=== PATIENT | female | born 1955 | race Hispanic/Latino ===

== ENCOUNTER 2020-04-28 05:53 | Emergency (ER) | payer OTHER ==
[2020-04-28] MEDS ORDERED: FAMOTIDINE 20 MG/2 ML VIAL IV ONE (06:52)
[2020-04-28] MEDS ORDERED: METRONIDAZOLE 500mg IVPB 500 MG/100 ML BAG IV ONE (06:52)
[2020-04-28] MEDS ORDERED: NA CHLORIDE 0.9% 1,000 ML ONE ×2 (06:52→07:31)
[2020-04-28 07:12] LABS: Absolute Lymphocytes (CBC) 0.7 K/uL (0.7-4.9); Basophils % 0.4 % (0-1.3); Hematocrit 43.8 % (36.0-45.0); Lymphocytes % 5.3 % (15.3-44.8); MPV 9.1 fL (7.6-11.3); RBC Red Blood Cell Count 4.44 M/uL (3.86-4.86)
[2020-04-28 07:16] LABS: Protime INR 1.21
--- NOTE | 2020-04-28 07:21 | EDPHYS ---
Physician Documentation [facility] Name: Radha Armando Age: 65 yrs Sex: Female : 1955 Arrival Date: 04/28/2020 Time: 06:01 Bed 7 Private MD: Torres Juarez ED Physician Federico De Anda HPI: 04/28 06:31 This 65 yrs old Female presents to ER via Ambulatory with complaints of marilin Nausea/Vomiting, Abdominal Pain. 06:31 The patient presents to the emergency department with nausea, vomiting. marilin Historical: - Allergies: 06:03 Codeine; sg - PMHx: 06:03 Hypertension; sg - PSHx: 06:03 Cholecystectomy; TUBAL ; sg - Immunization history:: Adult Immunizations up to date. - Social history:: Smoking status: Patient denies any tobacco usage or history of. ROS: 06:33 Constitutional: Negative for fever, chills, and weight loss, Eyes: Negative for injury, marilin pain, redness, and discharge, ENT: Negative for injury, pain, and discharge, Neck: Negative for injury, pain, and swelling, Cardiovascular: Negative for chest pain, palpitations, and edema, Respiratory: Negative for shortness of breath, cough, wheezing, and pleuritic chest pain, Back: Negative for injury and pain, : Negative for injury, bleeding, discharge, and swelling, MS/Extremity: Negative for injury and deformity, Neuro: Negative for headache, weakness, numbness, tingling, and seizure, Psych: Negative for depression, anxiety, suicide ideation, homicidal ideation, and hallucinations, Allergy/Immunology: Negative for hives, rash, and allergies, Endocrine: Negative for neck swelling, polydipsia, polyuria, polyphagia, and marked weight changes. 06:33 Abdomen/GI: Positive for abdominal pain, nausea and vomiting, abdominal cramps, flatulence, of the epigastric area, posterior aspect of right lateral abdomen, anterior aspect of right lateral abdomen and right upper quadrant. 06:33 Skin: Positive for rash, of the abdomen, right arm, left arm, right leg and left leg, petechiae, diffuse. Exam: 06:33 Constitutional: This is a well developed, well nourished patient who is awake, alert, marilin and in no acute distress. Head/Face: Normocephalic, atraumatic. Eyes: Pupils equal round and reactive to light, extra-ocular motions intact. Lids and lashes normal. Conjunctiva and sclera are non-icteric and not injected. Cornea within normal limits. Periorbital areas with no swelling, redness, or edema. ENT: Nares patent. No nasal discharge, no septal abnormalities noted. Tympanic membranes are normal and external auditory canals are clear. Oropharynx with no redness, swelling, or masses, exudates, or evidence of obstruction, uvula midline. Mucous membranes moist. Neck: Trachea midline, no thyromegaly or masses palpated, and no cervical lymphadenopathy. Supple, full range of motion without nuchal rigidity, or vertebral point tenderness. No Meningismus. Chest/axilla: Normal chest wall appearance and motion. Nontender with no deformity. No lesions are appreciated. Respiratory: Lungs have equal breath sounds bilaterally, clear to auscultation and percussion. No rales, rhonchi or wheezes noted. No increased work of breathing, no retractions or nasal flaring. Back: No spinal tenderness. No costovertebral tenderness. Full range of motion. Female : Normal external genitalia. MS/ Extremity: Pulses equal, no cyanosis. Neurovascular intact. Full, normal range of motion. Neuro: Awake and alert, GCS 15, oriented to person, place, time, and situation. Cranial nerves II-XII grossly intact. Motor strength 5/5 in all extremities. Sensory grossly intact. Cerebellar exam normal. Normal gait. Psych: Awake, alert, with orientation to person, place and time. Behavior, mood, and affect are within normal limits. 06:33 Cardiovascular: Rate: normal, Rhythm: regular, Pulses: Pulses are 4+ in bilateral radial, brachial, femoral, popliteal, posterior tibial and and dorsalis pedis arteries.. Heart sounds: normal, Edema: is not appreciated, JVD: is not appreciated. 06:33 Skin: Appearance: petechiae, noted on the abdomen, pelvis, right arm, left arm, right marilin leg and left leg. 06:42 ECG was reviewed by the Attending Physician. [facility] Vital Signs: 06:03 Pulse 89; Resp 18; Temp 97.7; Pulse Ox 96% on R/A; sg 06:03 Weight 73.48 kg; Height 5 ft. 2 in. (157.48 cm); sg 06:38 BP 143 / 82; Pulse 105; Resp 19; Pulse Ox 95% on R/A; jb4 07:15 BP 147 / 73; Pulse 105; Resp 17; Pulse Ox 97% ; Pain 10/10; jl7 08:29 BP 131 / 69; Pulse 82; Resp 17; Pulse Ox 96% on R/A; tw2 10:26 BP 148 / 80; Pulse 80; Resp 17; Pulse Ox 97% ; jl7 06:03 Body Mass Index 29.63 (73.48 kg, 157.48 cm) sg MDM: 06:05 Patient medically screened. [facility] 06:36 Differential diagnosis: carcinoma, Nonspecific abd pain, gastritis, cholecystitis, marilin diverticulitis. Data reviewed: vital signs, nurses notes, lab test result(s), EKG, radiologic studies, CT scan, plain films. Data interpreted: Pulse oximetry: on room air is 96 %. Test interpretation: by ED physician or midlevel provider: ECG, plain radiologic studies. Counseling: I had a detailed discussion with the patient and/or guardian regarding: the historical points, exam findings, and any diagnostic results supporting the discharge/admit diagnosis, the presence of at least one elevated blood pressure reading (>120/80) during this emergency department visit, lab results, radiology results. 08:35 ED course: Pt with significant swelling and edema of terminal small bowel with moderate rn free fluid. Unclear etiology of petechial rash, platelets normal, could be connected. Still having pain, increased free abd fluid, and increased WBC despite abx. No GI here, will have to transfer. . 04/28 06:30 Order name: Basic Metabolic Panel; Complete Time: 07:34 [facility] 04/28 06:30 Order name: CBC with Diff [facility] 04/28 06:30 Order name: LFT's; Complete Time: 07:34 [facility] 04/28 06:30 Order name: Magnesium; Complete Time: 07:34 [facility] 04/28 06:30 Order name: NT PRO-BNP; Complete Time: 07:34 [facility] 04/28 06:30 Order name: PT-INR; Complete Time: 07:31 [facility] 04/28 06:30 Order name: Troponin (emerg Dept Use Only); Complete Time: 07:34 [facility] 04/28 06:30 Order name: Lipase; Complete Time: 07:34 [facility] 04/28 06:30 Order name: Urine Culture [facility] 04/28 06:30 Order name: Blood Culture Adult (2) [facility] 04/28 06:30 Order name: Lactate; Complete Time: 08:01 [facility] 04/28 07:16 Order name: CBC Smear Scan [facility] 04/28 08:07 Order name: CREATININE WHOLE BLOOD; Complete Time: 08:23 [facility] 04/28 09:20 Order name: Urine Dipstick--Ancillary (enter results) 04/28 06:30 Order name: XRAY Chest (1 view) [facility] 04/28 06:30 Order name: EKG; Complete Time: 06:32 [facility] 04/28 06:30 Order name: Cardiac monitoring; Complete Time: 06:39 [facility] 04/28 06:30 Order name: EKG - Nurse/Tech; Complete Time: 06:39 [facility] 04/28 06:30 Order name: IV Saline Lock; Complete Time: 07:04 [facility] 04/28 06:30 Order name: Labs collected and sent; Complete Time: 07:04 [facility] 04/28 06:30 Order name: O2 Per Protocol; Complete Time: 06:39 [facility] 04/28 06:30 Order name: CT Aorta for Dissection; Complete Time: 08:01 [facility] 04/28 06:30 Order name: O2 Sat Monitoring; Complete Time: 06:39 [facility] 04/28 06:30 Order name: Urine Dipstick-Ancillary (obtain specimen); Complete Time: 09:21 [facility] EC:42 Rate is 107 beats/min. Rhythm is regular. QRS [place] is Normal. FL interval is normal. [facility] QRS interval is normal. QT interval is normal. No Q waves. T waves are Normal. No ST changes noted. Interpreted by me. Reviewed by me. Administered Medications: 07:03 Drug: Pepcid 20 mg Route: IVP; Site: left forearm; jb4 07:30 Follow up: Response: No adverse reaction jl7 07:03 Drug: Flagyl 500 mg Volume: 100 ml; Route: IVPB; Rate: 200 ml/hr; Infused Over: 30 jb4 mins; Site: left forearm; 07:33 Follow up: Response: No adverse reaction; IV Status: Completed infusion 7 07:04 Drug: NS 0.9% 1000 ml Route: IV; Rate: 1 bolus; Site: left forearm; jb4 08:00 Follow up: Response: No adverse reaction; IV Status: Completed infusion; IV Intake: jl7 1000ml 07:20 Drug: NS 0.9% 1000 ml Route: IV; Rate: 125 ml/hr; Site: left wrist; jl7 09:23 Follow up: IV Status: Infusion continued upon transfer jl7 07:23 Drug: Zofran (Ondansetron) 4 mg Route: IVP; Site: left wrist; jl7 07:45 Follow up: Response: No adverse reaction jl7 07:25 Drug: morphine 4 mg Route: IVP; Site: left wrist; jl7 07:45 Follow up: Response: No adverse reaction; Pain is decreased jl7 09:16 Drug: Cipro 400 mg Volume: 200 ml; Route: IVPB; Infused Over: 60 mins; Site: left wrist;tw2 10:15 Follow up: Response: No adverse reaction; IV Status: Completed infusion jl7 10:25 Drug: morphine 4 mg Route: IVP; Site: left forearm; jl7 10:25 Follow up: Response: No adverse reaction jl7 Disposition: 04/28/20 08:38 Transfer ordered to [facility]. Diagnosis are Enteritis, Free abdominal fluid. - Reason for transfer: Higher level of care. - Accepting physician is Dr. Gibson. - Condition is Stable. - Problem is new. - Symptoms have worsened. Signatures: Dispatcher [employer] EDMS Daniel Best RN Matty Howell MD MD cha Nieto, Roman, MD MD rn Baxter, Heather, RN RN hb Wise, Tara, RN RN tw2 Moises Castano RN RN jb4 Simeon Darby RN RN jl7 Sandra Chaney Corrections: (The following items were deleted from the chart) 07:27 07:20 04/28/2020 07:20 Transfer ordered to [facility]. marilin Diagnosis is Abdominal tenderness; Vomiting; Crohn's disease [regional enteritis]; Acute pancreatitis; Volume depletion; Essential (primary) hypertension. Reason for transfer: Higher level of care. Accepting physician is [facility] hospitalist, gi partition assembler. Condition is Fair. Problem is new. Symptoms have improved. amrilin 08:57 08:38 04/28/2020 08:38 Transfer ordered to [facility]. eb Diagnosis is Enteritis; Free abdominal fluid. Reason for transfer: Higher level of care. Accepting physician is . Condition is Stable. Problem is new. Symptoms have worsened. rn 10:27 08:57 04/28/2020 08:38 Transfer ordered to [facility]. jl7 Diagnosis is Enteritis; Free abdominal fluid. Reason for transfer: Higher level of care. Accepting physician is Dr. Gibson. Condition is Stable. Problem is new. Symptoms have worsened. eb
--- NOTE | 2020-04-28 07:21 | ER ---
Nurse's Notes [facility] Name: Radha Armando Age: 65 yrs Sex: Female : 1955 Arrival Date: 04/28/2020 Time: 06:01 Bed 7 Private MD: Torres Juarez Diagnosis: Enteritis;Free abdominal fluid Presentation: 04/28 06:03 Acuity: JUDY 3 sg 06:03 Chief complaint: Patient states: I have had nausea and vomiting throughout the night sg with abdominal pain as well. reports having pain worsen this AM, denies fever/chills for triage. Coronavirus screen: Client denies travel out of the [place] in the last 14 days. nausea, Client presents with at least one sign or symptom that may indicate coronavirus-19. Provider contacted for isolation considerations. Ebola Screen: Patient negative for fever greater than or equal to 101.5 degrees Fahrenheit, and additional compatible Ebola Virus Disease symptoms Patient denies exposure to infectious person. Patient denies travel to an Ebola-affected area in the 21 days before illness onset. No symptoms or risks identified at this time. Initial Sepsis Screen: Does the patient meet any 2 criteria? No. Patient's initial sepsis screen is negative. Does the patient have a suspected source of infection? Yes: Acute abdominal pain. Risk Assessment: Do you want to hurt yourself or someone else? Patient reports no desire to harm self or others. Onset of symptoms was April 28, 2020. Care prior to arrival: None. Transition of care: patient was not received from another setting of care. 06:03 Method Of Arrival: Ambulatory sg 06:03 Note reports rash to BLE as well as swelling to the knee joint. sg Historical: - Allergies: 06:03 Codeine; sg - PMHx: 06:03 Hypertension; sg - PSHx: 06:03 Cholecystectomy; TUBAL ; sg - Immunization history:: Adult Immunizations up to date. - Social history:: Smoking status: Patient denies any tobacco usage or history of. Screenin:10 Abuse screen: Denies threats or abuse. Nutritional screening: No deficits noted. jb4 Tuberculosis screening: No symptoms or risk factors identified. Fall Risk None identified. Assessment: 06:10 General: Appears in no apparent distress. uncomfortable, Behavior is calm, cooperative, jb4 appropriate for age. Pain: Complains of pain in right upper quadrant Pain radiates to right mid back Pain currently is 10 out of 10 on a pain scale. Neuro: Level of Consciousness is awake, alert, obeys commands, Oriented to person, place, time, situation. Cardiovascular: Patient's skin is warm and dry. Respiratory: Airway is patent Respiratory effort is even, unlabored, Respiratory pattern is regular, symmetrical. GI: Abdomen is round non-distended, Reports upper abdominal pain. : No signs and/or symptoms were reported regarding the genitourinary system. EENT: No signs and/or symptoms were reported regarding the EENT system. Derm: Skin is intact, Skin is pink, warm \T\ dry. Musculoskeletal: Circulation, motion, and sensation intact. Range of motion: intact in all extremities. 06:54 Reassessment: Patient appears in no apparent distress at this time. Patient and/or jb4 family updated on plan of care and expected duration. Pain level reassessed. Patient is alert, oriented x 3, equal unlabored respirations, skin warm/dry/pink. 07:15 Reassessment: Patient appears in no apparent distress at this time. Pt reports jl7 continued epigastric pain that radiates straight through to the back, described as intermittent sharp/cramping pain, rated 10/10, ERD notified, see MAR for orders. 10:24 Reassessment: EMS at bedside to transport pt to receiving facility. jl7 Vital Signs: 06:03 Pulse 89; Resp 18; Temp 97.7; Pulse Ox 96% on R/A; sg 06:03 Weight 73.48 kg; Height 5 ft. 2 in. (157.48 cm); sg 06:38 BP 143 / 82; Pulse 105; Resp 19; Pulse Ox 95% on R/A; jb4 07:15 BP 147 / 73; Pulse 105; Resp 17; Pulse Ox 97% ; Pain 10/10; jl7 08:29 BP 131 / 69; Pulse 82; Resp 17; Pulse Ox 96% on R/A; tw2 10:26 BP 148 / 80; Pulse 80; Resp 17; Pulse Ox 97% ; jl7 06:03 Body Mass Index 29.63 (73.48 kg, 157.48 cm) ED Course: 06:01 Patient arrived in ED. am2 06:01 Torres Juarez MD is Private Physician. am2 06:03 Triage completed. sg 06:03 Arm band placed on. sg 06:05 Matty Alfaro MD is Attending Physician. marilin 06:10 Patient has correct armband on for positive identification. Bed in low position. Call jb4 light in reach. Side rails up X 1. Pulse ox on. NIBP on. 06:15 Moises Castano RN is Primary Nurse. jb4 07:05 XRAY Chest (1 view) In Process Unspecified. EDMS 07:05 Inserted saline lock: 20 gauge in left forearm, using aseptic technique. upper arm, oe using aseptic technique. Blood collected. 07:38 Primary Nurse role handed off by Moises Castano RN jl7 07:38 Simeon Darby RN is Primary Nurse. jl7 07:40 CT Aorta for Dissection In Process Unspecified. EDMS 07:47 Attending Physician role handed off by Matty Alfaro MD rn 07:47 Federico De Anda MD is Attending Physician. rn 08:38 initiated a transfer with Zurdo from the [facility] Transfer center. eb 08:46 connected the GI diamond mounter for [facility] with Dr. De Anda for patient transfer eb consultation. 08:[address] Gibson the hospitalist diamond mounter for [facility] with Dr. De Anda for eb patient transfer consultation. 09:02 administrative approval given by Zurdo Ceballos Rn/ patient has been accepted to [facility] bed [id number]/ Dr. Gibson has accepted the patient in transfer/ report to be called to [phone]. 09:21 Urine Culture Sent. [facility] 10:24 No provider procedures requiring assistance completed. Patient transferred, IV remains jl7 in place. intact, No redness/swelling at site. Administered Medications: 07:03 Drug: Pepcid 20 mg Route: IVP; Site: left forearm; jb4 07:30 Follow up: Response: No adverse reaction jl7 07:03 Drug: Flagyl 500 mg Volume: 100 ml; Route: IVPB; Rate: 200 ml/hr; Infused Over: 30 jb4 mins; Site: left forearm; 07:33 Follow up: Response: No adverse reaction; IV Status: Completed infusion jl7 07:04 Drug: NS 0.9% 1000 ml Route: IV; Rate: 1 bolus; Site: left forearm; jb4 08:00 Follow up: Response: No adverse reaction; IV Status: Completed infusion; IV Intake: jl7 1000ml 07:20 Drug: NS 0.9% 1000 ml Route: IV; Rate: 125 ml/hr; Site: left wrist; jl7 09:23 Follow up: IV Status: Infusion continued upon transfer jl7 07:23 Drug: Zofran (Ondansetron) 4 mg Route: IVP; Site: left wrist; jl7 07:45 Follow up: Response: No adverse reaction jl7 07:25 Drug: morphine 4 mg Route: IVP; Site: left wrist; jl7 07:45 Follow up: Response: No adverse reaction; Pain is decreased jl7 09:16 Drug: Cipro 400 mg Volume: 200 ml; Route: IVPB; Infused Over: 60 mins; Site: left wrist;tw2 10:15 Follow up: Response: No adverse reaction; IV Status: Completed infusion jl7 10:25 Drug: morphine 4 mg Route: IVP; Site: left forearm; jl7 10:25 Follow up: Response: No adverse reaction jl7 Intake: 08:00 IV: 1000ml; Total: 1000ml. jl7 Outcome: 07:20 ER care complete, transfer ordered by . marilin 08:38 ER care complete, transfer ordered by . rn 10:24 Transferred by [facility] to [facility], Transfer form completed. jl7 10:24 Condition: stable 10:24 Discharge instructions given to patient, family, Instructed on the need for transfer, Demonstrated understanding of instructions. 10:27 Patient left the ED. jl7 Signatures: Dispatcher [employer] EDMS Daniel Best RN Matty Howell MD MD cha Nieto, Roman, MD MD rn Wise, Tara, RN RN tw2 Moises Castano RN RN jb4 Teofilo Caballero [facility] Simeon Darby RN RN jl7 Desi Garcia Elizabeth eb
[2020-04-28] MEDS ORDERED: ONDANSETRON 4 MG/2 ML VIAL ONE (07:30)
[2020-04-28] MEDS ORDERED: MORPHINE 4 MG/ML SYR ONE ×2 (07:30→10:33)
[2020-04-28 07:33] LABS: ALT/SGPT 77 U/L (12-78); AST/SGOT 61 U/L (15-37); Albumin 3.3 g/dL (3.4-5.0); Alkaline Phosphatase 71 U/L (45-117); BUN Blood Urea Nitrogen 15 mg/dL (7-18); Bicarbonate 23 mmol/L (21-32); Bilirubin Direct 0.2 mg/dL (0-0.2); Bilirubin Total 0.7 mg/dL (0.2-1.0); Glucose Level 198 mg/dL (74-106); Lipase 81 U/L (73-393); Magnesium 1.8 mg/dL (1.8-2.4); NT PRO-BNP 70 pg/mL (<125); Potassium 3.7 mmol/L (3.5-5.1); Protein, Total 8.7 g/dL (6.4-8.2); Sodium Level 137 mmol/L (136-145); Troponin (Emerg Dept Use Only) < 0.02 ng/mL (0.0-0.045)
--- NOTE | 2020-04-28 08:00 | RAD REPORT ---
EXAM DESCRIPTION: CT - Angio Aorta For Dissection - 04/28/2020 7:40 am CLINICAL HISTORY: Chest pain radiating to the back. Abdominal distention;Dissection;PE COMPARISON: No comparisons TECHNIQUE: CT angiography of the aorta was performed with MIPs. All CT scans are performed using dose optimization technique as appropriate and may include automated exposure control or mA/KV adjustment according to patient size. FINDINGS: A left aortic arch is present with normal branching pattern of the great vessels.No acute aortic finding is seen such as aneurysm, penetrating ulcer or dissection. The celiac axis, SMA, MATT and renal arteries are patent. No evidence of pulmonary embolism. The lungs are clear. Small hiatal hernia. The liver demonstrates no focal mass or biliary dilatation.Cholecystectomy clips.The spleen, pancreas , adrenal glands and kidneys are within normal limits for arterial phase imaging. Significant inflammation of multiple small bowel loops are seen which are surrounded by moderate free fluid. This is predominately in the left abdomen we were small bowel thickening with mural edema and measures up to 13 millimeters.No free air or abscess.No pathologic enlarged lymphadenopathy identifi ed. No fracture or worrisome bone lesion seen. IMPRESSION: No acute aortic finding is demonstrated. Significantly inflamed small bowel loops in the left abdomen with surrounding free fluid noted. This may indicate infectious enteritis or be secondary to inflammatory bowel disease.
[2020-04-28 08:51] LABS: Blood Morphology Comment NOT SEEN (NOT SEEN); Platelet Estimate ADEQ; White Blood Cell Scan OK (OK)
[2020-04-28] MEDS ORDERED: CIPROFLOXACIN 400mg IV 400 MG/200 ML BAG IV ONE (09:26)
[2020-04-28 09:39] LABS: Urine Blood TRACE (NEG); Urine Glucose NEGATIVE (NEG); Urine Protein NEGATIVE (NEG); Urine Specific Gravity 1.005 (1.005-1.030)
--- NOTE | 2020-04-28 12:38 | RAD REPORT ---
EXAM DESCRIPTION: RAD - Chest Single View - 04/28/2020 7:04 am CLINICAL HISTORY: COUGH Chest pain. COMPARISON: Chest Single View dated 02/26/2016; CHEST SINGLE VIEW dated 02/21/2009; CHEST PA AND LAT 2 VIEW dated 04/14/2001 FINDINGS: Portable technique limits examination quality. The lungs are grossly clear. The heart is normal in size. No displaced fractures. IMPRESSION: No acute intrathoracic process suspected.
[2020-04-28 12:58] VITALS: TEMP 97.7
[2020-04-28 13:10] VITALS: BP 148/80; O2SAT 97
== END 2020-04-28 10:27 | disposition short-term general hospital (02) ==
LOC: ER 05:53
DX: K52.9 Noninfective gastroenteritis and colitis, unspecified (principal); R18.8 Other ascites; I10 Essential (primary) hypertension; Z88.5 Allergy status to narcotic agent
CPT/HCPCS: 93005; 87040 ×2; 87088; 85025; 87086; 80048; 36415; 83735; 85610; 82565; 80076; 83605; 81003; 84484; 83690; 83880; 71275; 74175; 71045; 99285; Q9967; J7030 ×2; J2405; J0744

== ENCOUNTER 2023-01-07 18:07 | Emergency (ER) | payer OTHER ==
--- OUTSIDE RECORDS SUMMARY | 2023-01-07 18:12 | XMS REPORT | Continuity of Care Document ---
:1955 Author Organization [facility] t Address [address] [facility] [address] [place] [address] Care Team Providers Name Role Phone RAUDEL RAO Attending Clinician Unavailable RAUDEL RAO Admitting Clinician Unavailable BELL LAGUNAS Admitting Clinician Unavailable Payers Payer Name Policy Type Policy Number Effective Date Expiration Date S ource [employer]IC [employer]CIAL [id number] 2019 00:00:00 Problems Condition Condition Condition Status Onset Resolution Last Treating Co mments Source Name Details Category Date Date Treatment Clinician Date Enteritis Enteritis Disease Active 2019-[address] [facility] 00 [place] Generalize Generalize Disease Active 2019-[address] [facility] abdominal abdominal 00:00: [facility] yanely pain pain 00 Center Essential Essential Disease Active 2019-[address] hypertensi hypertensi 06-28 [facility]armaine kes on on 00:00: Medical 00 [place] Rash Rash Disease Active 2019-[address] [facility] [facility] 00[facility] 00 Center Allergies, Adverse Reactions, Alerts Allergy Allergy Status Severity Reaction(s) Onset Inactive Treating Comm ents Source Name Type Date Date Clinician NO KNOWN Allergy Active [facility] Family History Family Member Diagnosis Comments Start Date Stop Date Source Natural father Cancer [facility] Natural father Heart disease [facility] Natural brother Diabetes [facility] Natural brother Heart disease [facility] Social History Social Habit Start Date Stop Date Quantity Comments Source Alcohol intake 2020-05-01 2020-05-01 [facility] (finding) Tobacco use and 2020-04-28 2020-04-[address] [facility] exposure 00:00:00 00:00:00 tobacco user Medical Cent er History of 1980-04-28 [facility] Sex Assigned At [birth year] [facility] 00:00:00 [facility]:00 [facility] Center Smoking Status Start Date Stop Date Source Ex-smoker 2020-04-28 00:00:00 2020-04-28 00:00:00 [facility] Medications Ordered Filled Start Stop Current Ordering Indication Dosage Frequency Signature Comments Components Source Medication Medication Date Date Medication? Clinician (SIG) Name Name amLODIPine- 2019-06 Yes 1{capsu QD Take [address] benazepriL 2- le} capsule by Tremaine claudio (LOTREL) 13:55: mouth Medical 5-40 mg per 16 daily. Center capsule Vital Signs Vital Name Observation Time Observation Value Comments Source HEIGHT 2020-04-28 13:00:00 157.5 cm WEIGHT 2020-04-28 13:00:00 81.194 kg HEIGHT 2020-04-28 13:00:00 157.5 cm WEIGHT 2020-04-28 13:00:00 81.194 kg Procedures This patient has no known procedures. Plan of Care Planned Activity Planned Date Details Comments Source Future Scheduled 2030-04-30 Screening for malignant [facility] Test 00:00:00 neoplasm of colon Medical Ce nter (procedure) [code = 772727237] Future Scheduled 2030-04-30 Screening for malignant [facility] Test 00:00:00 neoplasm of colon Medical Ce nter (procedure) [code = 275907205] Future Scheduled 2023-01-30 Influenza Vaccine (#1) [facility] 00:[facility] [code = Influenza Vaccine [facility] (#1)] Future Scheduled 2022-06-[address] [facility] Test 00:00:00 (12+) [code = DEPRESSION Med ical Center SCREENING (12+)] Future Scheduled 2022-06-01 FALLS RISK SCREENING [facility] Test 00:00:00 [code = FALLS RISK Medical C enter SCREENING] Future Scheduled 2022 PNEUMOCOCCAL 65+ YRS (1 - [facility] Test 00:00:00 PCV) [code = PNEUMOCOCCAL Me dical Center 65+ YRS (1 - PCV)] Future Scheduled 2021-04-[address] [facility] Test 00:00:00 Counseling and Screening [facility] Center (12+) [code = Tobacco Cessation Counseling and Screening (12+)] Future Scheduled 2007 SHINGLES VACCINES ([address] [facility] Test 00:00:00 2) [code = SHINGLES Medical Center VACCINES (1 of 2)] Future Scheduled 2002 Lipid panel (procedure) [facility] Test 00:00:00 [code = 35755778] Medical Ce nter Future Scheduled 1978 Screening for malignant [facility] Test 00:00:00 neoplasm of cervix Medical C enter (procedure) [code = 569446865] Future Scheduled 1976 DTAP/TDAP/TD VACCINES ([address] [facility] Test 00:00:00 - Tdap) [code = Medical Cent er DTAP/TDAP/TD VACCINES (1 - Tdap)] Future Scheduled 1975 HEPATITIS C [facility]CRE[facility]ING [facility] 00:00[facility]00 [code = HEPATITIS C Medical Center SCREENING] Future Scheduled [address] [facility] Test 00:00:00 virus screening Medical Cent er (procedure) [code = 457088254] Future Scheduled 1955 COVID-19 VACCINE (#1) [facility] 00[facility]00[facility]00 [code = COVID-19 VACCINE Med ical Center (#1)] Future Scheduled 1957 Screening for malignant [facility] Test 00:00:00 neoplasm of breast Medical C enter (procedure) [code = 508385244] Future Scheduled 1957 CT Colonography (combo) [facility] Test 00:00:00 [code = CT Colonography [facility] (combo)] Future Scheduled 1955 DXA SCAN [code = DXA [facility] Test 00:00:00 SCAN] [facility] Future Scheduled 1957 Screening for malignant [facility] Test 00:00:00 neoplasm of colon Medical Ce nter (procedure) [code = 847409657] Future Scheduled 1957 Screening for malignant [facility] Test 00:00:00 neoplasm of colon Medical Ce nter (procedure) [code = 372399821] Future Scheduled 1955 Sigmoidoscopy [code = [facility] Sigmoidoscopy] Medical Cente r Encounters Start End Encounter Admission Attending Care Care Encounter Source Date/Time Date/Time Type Type Clinicians Facility Department ID 2021-03-08 Inpatient ER GIO RAO Gastro [id number] 21 [facility] 18:02:15 RAUDEL Results Test Description Test Time Test Comments Results Result Comments Source BLOOD CULTURE 2020-05-03 16:01:00 Test Item Value Reference Range Interpretation Comme nts CULTURE (BEAKER) (test code = 1095) No growth in 5 days BLOOD [id number] 16:01:00 Test Item Value Reference Range Interpretation Comments CULTURE (BEAKER) (test No growth in 5 days code = 1095) OVA AND PARASITE [id number] 08:53:00 Test Item Value Reference Range Interpretation Comments DIRECT SMEAR - O\\T\\P No ova or parasites No ova or parasites (BEAKER) (test code = seen seen 196) CONCENTRATE SMEAR - No ova or parasites No ova or parasites O\\T\\P (BEAKER) (test seen seen code = 247) TRICHROME SMEAR - No ova or parasites No ova or parasites O\\T\\P (BEAKER) (test seen seen code = 248) TISSUE [id number] 12:59:00Surgical Pathology Report Case: [id number] Authorizing Provider: Myriam Thomas MD Collected: 04/30/2020 10:33 AM Ordering Location: [address] Received: 04/30/2020 01:35 PM Service Pathologist: Myra Crowder MD Specimens: A) - Duodenal, bx B) - Stomach, random C) - Distal Esophagus D) - Proximal Esophagus E) - Biopsy, Gastroesophageal Junction, r/o barretts F) - Biopsy, Terminal Ileum G) - Polyp, Colon - Cecum, taken by cold snare H) - Large Intestine, Colon - Right/Ascending I)- Large Intestine, Colon - Transverse, not coming from the scope J) - Polyp, Colon - Transverse, taken by cold snare K) - Large Intestine, Colon - Left/Descending L) - Polyp, Colon - Sigmoid, taken bycold snare M) - Rectum A. DUODENUM, BIOPSY: - DUODENAL MUCOSA WITH PRESERVED VILLOUS ARCHITECTURE AND NO SIGNIFICANT DIAGNOSTIC ALTERATION. - NEGATIVE FOR FEATURES OF CELIAC DISEASE.B. 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 - NEGATIVE FOR HELICOBACTER PYLORI ORGANISMS BY WARTHIN STARRY STAIN. - NEGATIVE FOR INTESTINAL METAPLASIA, DYSPLASIA OR MALIGNANCY.C. ESOPHAGUS, DISTAL, BIOPSY: - SQUAMOUS EPITHELIUM WITH MILD CHANGES OF REFLUX. - NEGATIVE FOR FEATURES SUGGESTIVE OF EOSINOPHILIC ESOPHAGITIS. - NEGATIVE FOR INTESTINAL METAPLASIA/ DYSPLASIA/ MALIGNANCY.D. ESOPHAGUS, PROXIMAL, BIOPSY: - SQUAMOUS EPITHELIUM WITH MILD CHANGES OF REFLUX - NEGATIVE FOR FEATURES SUGGESTIVE OF EOSINOPHILIC ESOPHAGITIS. - NEGATIVE FOR INTESTINAL METAPLASIA/ DYSPLASIA/ MALIGNANCY.E. GASTROESOPHAGEAL JUNCTION, BIOPSY: - COLUMNAR MUCOSA WITH CHRONIC INACTIVE GASTRITIS. - POSITIVE FOR INTESTINAL METAPLASIA. - NO SQUAMOUS EPITHELIUM PRESENT. - NEGATIVE FOR DYSPLASIA OR MALIGNANCY.F. TERMINAL ILEUM, BIOPSY: - NO TISSUE PRESENT, SEE COMMENT.G. COLON, CECUM, POLYPECTOMY: - FRAGMENTS OF TUBULAR ADENOMA.H. COLON, ASCENDING, BIOPSY: - COLONIC MUCOSA WITH NO SIGNIFICANT DIAGNOSTIC ALTERATION. - NEGATIVE FOR MICROSCOPIC COLITIS. - NEGATIVE FOR DYSPLASIA OR MALIGNANCY.I. COLON, TRANSVERSE, BIOPSY: - COLONIC MUCOSA WITH NO SIGNIFICANT DIAGNOSTIC ALTERATION. - NEGATIVE FOR MICROSCOPIC COLITIS. - NEGATIVE FOR DYSPLASIA OR MALIGNANCY.J. COLON, TRANSVERSE, POLYPECTOMY: - NO TISSUE PRESENT, SEE COMMENT.K. COLON, DESCENDING, BIOPSY: - COLONIC MUCOSA WITH NO SIGNIFICANT DIAGNOSTIC ALTERATION. - NEGATIVE FOR MICROSCOPIC COLITIS. - NEGATIVE FOR DYSPLASIA OR MALIGNANCY.L. COLON, SIGMOID,POLYPECTOMY: - TUBULAR ADENOMA.M. RECTUM, BIOPSY: - RECTAL MUCOSA WITH NO SIGNIFICANT DIAGNOSTIC ALTE RATION. - NEGATIVE FOR MICROSCOPIC COLITIS. - NEGATIVE FOR DYSPLASIA OR MALIGNANCY. Signing Pathologist Direct Phone Line: [phone] signed by Myra Crowder MD on 05/02/2020 at 12:59 PMSpecimen F was a minute fragment and did not survive processing. No tissue is present in the container f or specimen J.88485 x 11, 42381 x 2, 49734, 08912 X 2, 59618 Abdominal painA. Duodenal biopsy: B. Random stomach biopsy; C. Distal esophagus; D. Proximal esophagus; E. Gastroesophageal junction biopsy,rule out Robles's; F. Terminal ileum biopsy; G. Cecum colon polyp; H. Right/ascending colon biopsy;I. transverse colon biopsy; J. Transverse colon polyp; K. Left/descending colon biopsy; L. Sigmoid colon polyp; M. Rectum A. Received in formalin labeled with the patient's name and information and "duodenum" are four garces-pink irregular tissue fragments measuring 0.8 x 0.4 x 0.3 cm in aggregate. The specimen is filtered and submitted entirely in A1. B. Received in formalin labeled with the patient's name and information and "stomach" are three garces-pink irregular tissue fragments measuring 0.8 x 0.3 x 0.2 cm. The specimen is filtered and submitted entirely in B1. C. Received in formalin labeled withthe patient's name and information and "distal esophagus" are four garces-pink irregular tissue fragments measuring 0.6 x 0.2 x 0.1 cm. The specimen is filtered and submitted entirely in C1. D. Received in formalin labeled with the patient's name and information and "proximal esophagus" are innumerable minute garces-brown irregular tissue fragments measuring 0.5 x 0.3 x 0.1 cm and ranging in greatest dimension from less than 0.2 to 0.2 cm. Please note this tissue may not survive processing. E. Received informalin labeled with the patient's name and information and "gastroesophageal junction biopsy" is asingle garces-pink irregular tissue fragment measuring 0.4 x 0.2 x 0.2 cm and multiple garces-pink minute irregular tissue fragments measuring up to 0.1 cm in greatest dimension and measuring 0.3 x 0.2 x 0.1cm in aggregate. The specimen is filtered and submitted entirely in cassette E1. F. Received in formalin labeled with the patient's name and information and "terminal ileum biopsy" is single garces-white irregular tissue fragment measuring 0.1 x 0.1 x 0.1 cm. The specimen is submitted in toto in cassetteF1. Please note: this tissue may not survive processing. G. Received in formalin labeled with the patient's name and information and "cecum polyp" are three garces-yellow irregular tissue fragments measuring 0.7 x 0.3 x 0.2 cm in aggregate. The specimen is filtered and submitted entirely in cassette G1.H. Received in formalin labeled with the patient's name and information and "ascending colon" are fourtan-pink irregular tissue fragments measuring 0.8 x 0.3 x 0.2 cm. The specimen is filtered and submitted entirely in cassette H1.I. Received in formalin labeled with the patient's name and information and "transverse colon" are two garces-pink irregular tissue fragments measuring 0.4 x 0.2 x 0.2 cm in aggregate and range in greatest dimension from 0.1 to 0.2 cm. The specimen is filtered and submitted entirely in cassette I1. J. Received in formalin labeled with the patient's name and information and "transverse colon polyp" are approximately 2 cc of clear fluid and no identifiable tissue. No sections are submitted. K. Received in formalin labeled with the patient's name and information and "descending colon" are three irregular garces-red tissue fragments measuring 0.6 x 0.3 x 0.2 cm in aggregate. The specimen is filtered and submitted entirely in cassette K1. L. Received in formalin labeled with the patient's name and information and "sigmoid colon polyp" is single garces-pink polypoid tissue fragment measuring 0.4 x 0.3 x 0.2 cm. The specimen is submitted in toto in cassette L1. M. Received in formalin labeled with the patient's name and information and "rectum" are two garces-red irregular tissue fragments measuring 0.4 x 0.2 x 0.2 cm in aggregate. The specimen is filtered and submitted entirely in cassette M1. SB/plPerformed.The interpretation of this case included the use of immunohistochemistry or special stains.B1, Warthin starry, H-pylori: negativeC1. GMS, HSV1, HSV2: negativeControl Slides Examined: In-house known positive controls were evaluated along with the test tissue. These control slides run alongside of the patients sample show appropriate staining. Internal positive and negative controls when available are evaluated Immunohistochemistry technical testing was performed at [facility], Pathology Laboratory where it was developed and its performance characteristics were determined. It has not been cleared or approved by the U.S. Food and Drug Administration. The FDA has determined that such clearance or approval is not necessary. The test is used for clinical p urposes. It should not be regarded as investigational or for research. This laboratory is certified under the Clinical Laboratory Improvement Amendments of 1988 (CLIA-88) as qualified to perform high complexity clinical laboratory testing.[facility], Department of Pathology, [address] [place] [address], [facility], [facility], [address] [place] [address], [facility], Department of Pathology, [address] [place] [address], gi PATHOGEN PROFILE BY PCR 2020-05-02 08:59:00 Test Item Value Reference Range Interpretation Comments CAMPYLOBACTER (PCR) (test code = 20151204) PLESIOMONAS SHIGELLOIDES (PCR) (test code = 5236202) SALMONELLA (PCR) (test code = 2792973) YERSINIA ENTEROCOLITICA (PCR) (test code = 7958438) VIBRIO CHOLERAE (PCR) (test code = 6618474) ENTEROAGGREGATIVE E. COLI (EAEC) BY PCR (test code = 3287163) ENTEROPATHOGENIC E. COLI (EPEC) BY PCR (test code = 5088373) ENTEROTOXIGENIC E. COLI (ETEC) LT/ST BY PCR (test code = 7324679) SHIGA-LIKE TOXIN-PRODUCING E. COLI (STEC) STX1/STX2 (test code = 9940378) E. COLI O157 (PCR) (test code = 5799958) SHIGELLA/ENTEROINVASIVE E. COLI (EIEC) BY PCR (test code = 6546088) CRYPTOSPORIDIUM (PCR) (test code = 5474280) CYCLOSPORA CAYETANENSIS (PCR) (test code = 6343837) ENTAMOEBA HISTOLYTICA (PCR) (test code = 8599010) GIARDIA LAMBLIA (PCR) (test code = 4158178) ADENOVIRUS F 40/41 (PCR) (test code = 5591686) ASTROVIRUS (PCR) (test code = 4885379) NOROVIRUS GI/GII (PCR) (test code = 3124334) ROTAVIRUS A (PCR) (test code = 0839377) SAPOVIRUS (I, II, IV, V) BY PCR (test code = 9571236) VIBRIO (PARAHAEMOLYTICUS, VULNIFICUS) (test code = 3431308) Other viruses, parasites and bacteria not targeted by this PCR panel cannot be excluded; therefore clinical correlation and follow up of serology, culture results, and other molecular studies is required. The results are not intended to be used as the sole means for clinical diagnosis or patient management decisions. This sample was tested at the [facility] Molecular Diagnostics Laboratory using the [place] Gastrointestinal Panel. It is FDA cleared and has been verified and approved by the [facility] Molecular Diagnostics Laboratory for clinical use. This laboratory is CLIA-certified and College ofAmerican Pathologists (CAP)-accredited to perform high complexity testing. See scan, Test perform by[facility]acor lab. DIFFICILE GDH [id number] 20:10:00 Test Item Value Reference Range Interpretation Comments CDT TOXIN (test code Negative Negative = 7875868625) CDT GDH ANTIGEN (test Negative Negative No ind ication of code = 4784037776) Clostridi um difficile infection and n o colonization. Discontinue ent cecile isolation and t herapy. Testing performed by [employer] Rapid Cassette Assay. For GDH, published sensitivity of the assay is 98.7% compared to cytotoxicity testing. For Toxin AB, published sensitivity is 87.8% and specificity 99.4% compared to cytotoxicity testing.Verification of kit performance was done by the [facility] MicrobiologyLab prior to clinical use.STOOL CULTURE + SHIGA [id number] 09:57:00 Test Item Value Reference Range Interpretation Comments CULTURE (BEAKER) No Salmonella, Shigella (test code = 1095) or Campylobacter isolated Unable to test for Shiga Toxin 1 due to insufficient growth of specimen.Unable to test for Shiga Toxin 2 due to insufficient growth of specimen.Resubmit new specimen if clinically indicated.STOOL PATH [id number] 12:19:00 Test Item Value Reference Range Interpretation Comments PATHOGEN EXAM CHARGED (BEAKER) (test Done code = 2381) COMPREHENSIVE METABOLIC [id number] 07:57:00 Test Item Value Reference Range Interpretation Comments TOTAL PROTEIN 6.6 gm/dL 6.0-8.3 (BEAKER) (test code = 770) ALBUMIN (BEAKER) 3.0 g/dL 3.5-5.0 L (test code = 1145) ALKALINE PHOSPHATASE 52 U/L 40-150 (BEAKER) (test code = 346) BILIRUBIN TOTAL 0.5 mg/dL 0.2-1.2 (BEAKER) (test code = 377) SODIUM (BEAKER) (test 138 meq/L 136-145 code = 381) POTASSIUM (BEAKER) 3.8 meq/L 3.5-5.1 (test code = 379) CHLORIDE (BEAKER) 109 meq/L 98-107 H (test code = 382) CO2 (BEAKER) (test 22 meq/L 22-29 code = 355) BLOOD UREA NITROGEN 7 mg/dL 7-21 (BEAKER) (test code = 354) CREATININE (BEAKER) 0.65 mg/dL 0.57-1.25 (test code = 358) GLUCOSE RANDOM 93 mg/dL 70-105 (BEAKER) (test code = 652) CALCIUM (BEAKER) 8.3 mg/dL 8.4-10.2 L (test code = 697) AST (SGOT) (BEAKER) 33 U/L 5-34 (test code = 353) ALT (SGPT) (BEAKER) 37 U/L 6-55 (test code = 347) EGFR (BEAKER) (test 92 mL/min/1.73 ESTIMA JAZMÍN GFR IS code = 1092) sq m NOT ACCURATE CREATININE CLEARANCE IN PREDICTING GLOMERULAR FILTRATION RATE . ESTIMATED GFR I S NOT APPLICABLE FOR DIALYSIS PATIEN TS. Eye Surgeon ID - EDASICBC W/PLT COUNT & AUTO [id number] 07:35:00 Test Item Value Reference Range Interpretation Comments WHITE BLOOD CELL COUNT (BEAKER) 6.4 K/ L 3.5-10.5 (test code = 775) RED BLOOD CELL COUNT (BEAKER) 3.32 M/ L 3.93-5.22 L (test code = 761) HEMOGLOBIN (BEAKER) (test code = 11.3 GM/DL 11.2-15.7 410) HEMATOCRIT (BEAKER) (test code = 33.9 % 34.1-44.9 L 411) MEAN CORPUSCULAR VOLUME (BEAKER) 102.1 fL 79.4-94.8 H (test code = 753) MEAN CORPUSCULAR HEMOGLOBIN 34.0 pg 25.6-32.2 H (BEAKER) (test code = 751) MEAN CORPUSCULAR HEMOGLOBIN CONC 33.3 GM/DL 32.2-35.5 (BEAKER) (test code = 752) RED CELL DISTRIBUTION WIDTH 12.6 % 11.7-14.4 (BEAKER) (test code = 412) PLATELET COUNT (BEAKER) (test 206 K/CU MM 150-450 code = 756) MEAN PLATELET VOLUME (BEAKER) 10.3 fL 9.4-12.3 (test code = 754) NUCLEATED RED BLOOD CELLS 0 /100 WBC 0-0 (BEAKER) (test code = 413) NEUTROPHILS RELATIVE PERCENT 63 % (BEAKER) (test code = 429) LYMPHOCYTES RELATIVE PERCENT 28 % (BEAKER) (test code = 430) MONOCYTES RELATIVE PERCENT 8 % (BEAKER) (test code = 431) EOSINOPHILS RELATIVE PERCENT 2 % (BEAKER) (test code = 432) BASOPHILS RELATIVE PERCENT 0 % (BEAKER) (test code = 437) NEUTROPHILS ABSOLUTE COUNT 3.98 K/ L 1.56-6.13 (BEAKER) (test code = 670) LYMPHOCYTES ABSOLUTE COUNT 1.75 K/ L 1.18-3.74 (BEAKER) (test code = 414) MONOCYTES ABSOLUTE COUNT (BEAKER) 0.49 K/ L 0.24-0.36 H (test code = 415) EOSINOPHILS ABSOLUTE COUNT 0.10 K/ L 0.04-0.36 (BEAKER) (test code = 416) BASOPHILS ABSOLUTE COUNT (BEAKER) 0.02 K/ L 0.01-0.08 (test code = 417) IMMATURE GRANULOCYTES-RELATIVE 0 % 0-1 PERCENT (BEAKER) (test code = 2801) URINALYSIS W/ REFLEX URINE [id number] 13:40:00 Test Item Value Reference Range Interpretation Comments COLOR (BEAKER) (test code = 470) Light Yellow CLARITY (BEAKER) (test code = Clear 469) SPECIFIC GRAVITY UA (BEAKER) 1.004 1.001-1.035 (test code = 468) PH UA (BEAKER) (test code = 467) 6.0 5.0-8.0 PROTEIN UA (BEAKER) (test code = Negative Negative 464) GLUCOSE UA (BEAKER) (test code = Negative Negative 365) KETONES UA (BEAKER) (test code = Negative Negative 371) BILIRUBIN UA (BEAKER) (test code Negative Negative = 462) BLOOD UA (BEAKER) (test code = Negative Negative 461) NITRITE UA (BEAKER) (test code = Negative Negative 465) LEUKOCYTE ESTERASE UA (BEAKER) Negative Negative (test code = 466) UROBILINOGEN UA (BEAKER) (test 0.2 mg/dL 0.2-1.0 code = 463) RBC UA (BEAKER) (test code = < /HPF 519) WBC UA (BEAKER) (test code = 1 /HPF 520) BACTERIA (BEAKER) (test code = Many 517) SQUAMOUS EPITHELIAL (BEAKER) 1 /HPF (test code = 516) SOURCE(BEAKER) (test code = 2795) Eye Surgeon ID - [auto]Eye Surgeon ID - [id number] 07:03:00 Test Item Value Reference Range Interpretation Comments FERRITIN (BEAKER) (test code = 281.35 ng/mL 5.00-275.00 H 361) Eye Surgeon ID - EDASIBASIC METABOLIC [id number] 06:41:00 Test Item Value Reference Range Interpretation Comments SODIUM (BEAKER) 136 meq/L 136-145 (test code = 381) POTASSIUM (BEAKER) 3.8 meq/L 3.5-5.1 (test code = 379) CHLORIDE (BEAKER) 108 meq/L 98-107 H (test code = 382) CO2 (BEAKER) (test 20 meq/L 22-29 L code = 355) BLOOD UREA NITROGEN 9 mg/dL 7-21 (BEAKER) (test code = 354) CREATININE (BEAKER) 0.66 mg/dL 0.57-1.25 (test code = 358) GLUCOSE RANDOM 98 mg/dL 70-105 (BEAKER) (test code = 652) CALCIUM (BEAKER) 8.2 mg/dL 8.4-10.2 L (test code = 697) EGFR (BEAKER) (test 90 mL/min/1.73 ESTIMA JAZMÍN GFR IS code = 1092) sq m NOT ACCURATE CREATININE CLEARANCE IN PREDICTING GLOMERULAR FILTRATION RATE . ESTIMATED GFR I S NOT APPLICABLE FOR DIALYSIS PATIEN TS. Eye Surgeon ID - [id number] 06:41:00 Test Item Value Reference Range Interpretation Comments MAGNESIUM (BEAKER) (test code = 1.7 mg/dL 1.6-2.6 627) Eye Surgeon ID - [id number] 06:41:00 Test Item Value Reference Range Interpretation Comments PHOSPHORUS (BEAKER) (test code = 3.2 mg/dL 2.3-4.7 604) Eye Surgeon ID - EDASIHEPATIC FUNCTION [id number] 06:41:00 Test Item Value Reference Range Interpretation Comments TOTAL PROTEIN (BEAKER) (test code = 6.5 gm/dL 6.0-8.3 770) ALBUMIN (BEAKER) (test code = 1145) 3.0 g/dL 3.5-5.0 L BILIRUBIN TOTAL (BEAKER) (test code 0.7 mg/dL 0.2-1.2 = 377) BILIRUBIN DIRECT (BEAKER) (test 0.4 mg/dL 0.1-0.5 code = 706) ALKALINE PHOSPHATASE (BEAKER) (test 49 U/L 40-150 code = 346) AST (SGOT) (BEAKER) (test code = 35 U/L 5-34 H 353) ALT (SGPT) (BEAKER) (test code = 42 U/L 6-55 347) Eye Surgeon ID - EDASIC-REACTIVE [id number] 06:41:00 Test Item Value Reference Range Interpretation Comments C-REACTIVE PROTEIN (BEAKER) (test 2.69 mg/dL 0.00-0.50 H code = 676) Eye Surgeon ID - EDASIPROTHROMBIN [id number] 06:22:00 Test Item Value Reference Range Interpretation Comments PROTIME (BEAKER) (test code = 15.7 seconds 11.9-14.2 H 759) INR (BEAKER) (test code = 370) 1.30 <=5.90 Effective 10/27/2018: PT Reference Range ChangeNew: 11.9-14.2 Previous: 11.7- 14.7RECOMMENDED COUMADIN/WARFARIN INR THERAPY RANGESSTANDARD DOSE: 2.0-3.0 Includes: PROPHYLAXIS for venous thrombosis, systemic embolization; TREATMENT for venous thrombosis and/or pulmonary embolus.HIGH RISK: Target INR is 2.5-3.5 for patients wiht mechanical heart valves.CBC W/PLT COUNT & AUTO [id number] 06:09:00 Test Item Value Reference Range Interpretation Comments WHITE BLOOD CELL COUNT (BEAKER) 8.6 K/ L 3.5-10.5 (test code = 775) RED BLOOD CELL COUNT (BEAKER) 3.40 M/ L 3.93-5.22 L (test code = 761) HEMOGLOBIN (BEAKER) (test code = 11.7 GM/DL 11.2-15.7 410) HEMATOCRIT (BEAKER) (test code = 35.0 % 34.1-44.9 411) MEAN CORPUSCULAR VOLUME (BEAKER) 102.9 fL 79.4-94.8 H (test code = 753) MEAN CORPUSCULAR HEMOGLOBIN 34.4 pg 25.6-32.2 H (BEAKER) (test code = 751) MEAN CORPUSCULAR HEMOGLOBIN CONC 33.4 GM/DL 32.2-35.5 (BEAKER) (test code = 752) RED CELL DISTRIBUTION WIDTH 12.5 % 11.7-14.4 (BEAKER) (test code = 412) PLATELET COUNT (BEAKER) (test 221 K/CU MM 150-450 code = 756) MEAN PLATELET VOLUME (BEAKER) 10.7 fL 9.4-12.3 (test code = 754) NUCLEATED RED BLOOD CELLS 0 /100 WBC 0-0 (BEAKER) (test code = 413) NEUTROPHILS RELATIVE PERCENT 68 % (BEAKER) (test code = 429) LYMPHOCYTES RELATIVE PERCENT 24 % (BEAKER) (test code = 430) MONOCYTES RELATIVE PERCENT 8 % (BEAKER) (test code = 431) EOSINOPHILS RELATIVE PERCENT 1 % (BEAKER) (test code = 432) BASOPHILS RELATIVE PERCENT 0 % (BEAKER) (test code = 437) NEUTROPHILS ABSOLUTE COUNT 5.79 K/ L 1.56-6.13 (BEAKER) (test code = 670) LYMPHOCYTES ABSOLUTE COUNT 2.02 K/ L 1.18-3.74 (BEAKER) (test code = 414) MONOCYTES ABSOLUTE COUNT (BEAKER) 0.65 K/ L 0.24-0.36 H (test code = 415) EOSINOPHILS ABSOLUTE COUNT 0.07 K/ L 0.04-0.36 (BEAKER) (test code = 416) BASOPHILS ABSOLUTE COUNT (BEAKER) 0.02 K/ L 0.01-0.08 (test code = 417) IMMATURE GRANULOCYTES-RELATIVE 0 % 0-1 PERCENT (BEAKER) (test code = 2801) SARS-COV2/RT-PCR ([facility])2020-04-28 18:26:00 Test Item Value Reference Range Interpretation Comments SARS-COV2/RT-PCR (test Negative Not Detected, Negative, code = 6037865) See external report for linked test SARS-COV-[address] [facility] (test code = 1431450) Negative result for this test determines that SARS-CoV-2 RNA was not present in the specimen above the Limit of Detection (LOD). However, Negative results do not preclude SARS-CoV-2 infection and should not be used as the sole basis for treatment or patient management decisions. Negative results must be combined with clinical observations, patient history, and epidemiological information. A false negative result may occur if a specimen is improperly collected, transported or handled. A false negative result should be considered if patient's recent exposures or clinical presentation indicate that COVID-19 (SARS-CoV-2) is likely and diagnostic tests for other causes of illness are negative. Re-testing should be considered in cases of suspected false negatives.The limit of detection for this assay is 800 copies/mL.This SARS CoV-2 test is a real-time RT-PCR test intended for the qualitative detection of nucleic acid from SARS-CoV-2 in a nasopharyngeal swab specimen collected from individuals suspected of COVID-19 by their healthcare provider.This test has not been Food and Drug Administration (FDA) cleared or approved. This is a modified version of an approved Emergency Use Authorization (EUA) and is in the process of review by the FDA. Once authorized by the FDA, the issued EUA will be effective until the declaration that circumstances exist justifying the authorization of the emergency use ofin vitro diagnostic tests for detection and/or diagnosis of COVID-19 is terminated under Section 564(b)(2) of the Act or the EUA is revoked under Section 564(g) of the Act.Fact Sheet for Healthcare Prov iders:https://www.[employer]/sites/default/files/product/documents/Fact_Sheet_HC _Agyzdftql_Yhal_IZGO-GmN-5.pdfFact Sheet for Healthcare Patients:https://www.[employer]/sites/default/files/product/docume nts/Vrmm_Hvdwv_Nvinfhzf_Ovyb_RAUZ-SwQ-2.pdfPerforming Laboratory:[facility], [place] [id number] 16:13:00 Test Item Value Reference Range Interpretation Comments AMYLASE (BEAKER) (test code = 349) 52 U/L 25-125 Eye Surgeon ID - [id number] 16:13:00 Test Item Value Reference Range Interpretation Comments LIPASE (BEAKER) (test code = 749) 36 U/L 8-78 Eye Surgeon ID - DBCOMPREHENSIVE METABOLIC [id number] 14:43:00 Test Item Value Reference Range Interpretation Comments TOTAL PROTEIN 7.4 gm/dL 6.0-8.3 (BEAKER) (test code = 770) ALBUMIN (BEAKER) 3.3 g/dL 3.5-5.0 L (test code = 1145) ALKALINE PHOSPHATASE 57 U/L 40-150 (BEAKER) (test code = 346) BILIRUBIN TOTAL 0.6 mg/dL 0.2-1.2 (BEAKER) (test code = 377) SODIUM (BEAKER) (test 136 meq/L 136-145 code = 381) POTASSIUM (BEAKER) 3.6 meq/L 3.5-5.1 (test code = 379) CHLORIDE (BEAKER) 106 meq/L 98-107 (test code = 382) CO2 (BEAKER) (test 22 meq/L 22-29 code = 355) BLOOD UREA NITROGEN 11 mg/dL 7-21 (BEAKER) (test code = 354) CREATININE (BEAKER) 0.67 mg/dL 0.57-1.25 (test code = 358) GLUCOSE RANDOM 112 mg/dL 70-105 H (BEAKER) (test code = 652) CALCIUM (BEAKER) 8.2 mg/dL 8.4-10.2 L (test code = 697) AST (SGOT) (BEAKER) 41 U/L 5-34 H (test code = 353) ALT (SGPT) (BEAKER) 49 U/L 6-55 (test code = 347) EGFR (BEAKER) (test 89 mL/min/1.73 ESTIMA JAZMÍN GFR IS code = 1092) sq m NOT ACCURATE CREATININE CLEARANCE IN PREDICTING GLOMERULAR FILTRATION RATE . ESTIMATED GFR I S NOT APPLICABLE FOR DIALYSIS PATIEN TS. Eye Surgeon ID - EBONI MCBC W/PLT COUNT & AUTO [id number] 14:02:00 Test Item Value Reference Range Interpretation Comments WHITE BLOOD CELL COUNT (BEAKER) 11.4 K/ L 3.5-10.5 H (test code = 775) RED BLOOD CELL COUNT (BEAKER) 4.10 M/ L 3.93-5.22 (test code = 761) HEMOGLOBIN (BEAKER) (test code = 13.9 GM/DL 11.2-15.7 410) HEMATOCRIT (BEAKER) (test code = 42.0 % 34.1-44.9 411) MEAN CORPUSCULAR VOLUME (BEAKER) 102.4 fL 79.4-94.8 H (test code = 753) MEAN CORPUSCULAR HEMOGLOBIN 33.9 pg 25.6-32.2 H (BEAKER) (test code = 751) MEAN CORPUSCULAR HEMOGLOBIN CONC 33.1 GM/DL 32.2-35.5 (BEAKER) (test code = 752) RED CELL DISTRIBUTION WIDTH 12.4 % 11.7-14.4 (BEAKER) (test code = 412) PLATELET COUNT (BEAKER) (test 249 K/CU MM 150-450 code = 756) MEAN PLATELET VOLUME (BEAKER) 10.3 fL 9.4-12.3 (test code = 754) NUCLEATED RED BLOOD CELLS 0 /100 WBC 0-0 (BEAKER) (test code = 413) NEUTROPHILS RELATIVE PERCENT 79 % (BEAKER) (test code = 429) LYMPHOCYTES RELATIVE PERCENT 15 % (BEAKER) (test code = 430) MONOCYTES RELATIVE PERCENT 6 % (BEAKER) (test code = 431) EOSINOPHILS RELATIVE PERCENT 0 % (BEAKER) (test code = 432) BASOPHILS RELATIVE PERCENT 0 % (BEAKER) (test code = 437) NEUTROPHILS ABSOLUTE COUNT 8.98 K/ L 1.56-6.13 H (BEAKER) (test code = 670) LYMPHOCYTES ABSOLUTE COUNT 1.68 K/ L 1.18-3.74 (BEAKER) (test code = 414) MONOCYTES ABSOLUTE COUNT (BEAKER) 0.71 K/ L 0.24-0.36 H (test code = 415) EOSINOPHILS ABSOLUTE COUNT 0.01 K/ L 0.04-0.36 L (BEAKER) (test code = 416) BASOPHILS ABSOLUTE COUNT (BEAKER) 0.01 K/ L 0.01-0.08 (test code = 417) IMMATURE GRANULOCYTES-RELATIVE 0 % 0-1 PERCENT (BEAKER) (test code = 2801)
[2023-01-07] MEDS ORDERED: HYDROCODONE/APAP 5/325 MG TAB ONE (18:46)
[2023-01-07] MEDS ORDERED: ONDANSETRON 4 MG (ODT) TAB ONE ×2 (18:47→18:48)
--- NOTE | 2023-01-07 19:34 | RAD REPORT ---
EXAM DESCRIPTION: CT - CTHCSPWOC - 01/07/2023 6:41 pm CLINICAL HISTORY: Trauma, head and neck injury. TRAUMA COMPARISON: No comparisons TECHNIQUE: Axial 5 mm thick images of the head were obtained. Axial 2 mm thick images of the cervical spine were obtained with sagittal and coronal reconstruction images generated and reviewed. All CT scans are performed using dose optimization technique as appropriate and may include automated exposure control or mA/KV adjustment according to patient size. FINDINGS: CT HEAD WITHOUT CONTRAST: No acute hemorrhage, hydrocephalus or extra-axial collection is identified.No areas of brain edema or midline shift. The paranasal sinuses and mastoids are clear.The calvarium is intact. CT CERVICAL SPINE WITHOUT CONTRAST: No fracture or subluxation.No prevertebral soft tissues swelling is identified. Anterolisthesis of C4 on C5 of approximately 1-2 millimeters. Carotid artery calcifications. Neuroforaminal narrowing is p resent at C5-6 and C6-7. . IMPRESSION: No acute intracranial or cervical spine findings.
--- NOTE | 2023-01-07 19:37 | RAD REPORT ---
EXAM DESCRIPTION: RAD - Foot Right 3 View - 01/07/2023 6:47 pm CLINICAL HISTORY: SMASH INJURY COMPARISON: No comparisons FINDINGS/IMPRESSION: No acute fracture. No malalignment. Plantar aspect calcaneal spurring.
--- NOTE | 2023-01-07 19:55 | EDPHYS ---
Physician Documentation [facility] Name: Radha Armando Age: 67 yrs Sex: Female : 1955 Arrival Date: 01/07/2023 Time: 18:07 Bed IW2 Private MD: ED Physician Katlyn Soto Historical: - Allergies: 01/07 18:23 Codeine; iw - PMHx: 18:23 Hypertension; iw - Immunization history:: Adult Immunizations unknown. - Social history:: Smoking status: . Vital Signs: 18:22 BP 175 / 91; Pulse 93; Resp 16; Temp 98.5; Pulse Ox 100% on R/A; Weight 80.74 kg; iw Height 5 ft. 2 in. ; Pain 10/10; 18:22 Body Mass Index 32.56 (80.74 kg, 157.48 cm) iw 18:22 Pain Scale: Adult iw MDM: 18:12 Patient medically screened. cp3 01/07 18:32 Order name: CT Head C Spine; Complete Time: 19:50 cp3 01/07 18:32 Order name: Foot Right 3 View XRAY; Complete Time: 19:50 cp3 Administered Medications: 18:40 Drug: Ondansetron PO 4 mg Route: PO; iw 20:18 Follow up: Response: No adverse reaction cm10 18:53 Not Given (Patient Refused): HYDROcodone-acetaminophen PO 5 mg-325 mg 2 tabs PO once mb9 20:18 Drug: Ibuprofen PO 800 mg Route: PO; cm10 20:18 Follow up: Response: No adverse reaction cm10 Disposition Summary: 01/07/23 19:54 Discharge Ordered Location: Home cp3 Condition: Stable cp3 Diagnosis - Fall on same level, unspecified cp3 - Crushing injury of other parts of head cp3 - Contusion of left foot cp3 Followup: cp3 - With: Private Physician - When: As needed - Reason: If symptoms return Discharge Instructions: - Discharge Summary Sheet cp3 - Foot Contusion cp3 - Head Injury, Adult, [id number] cp3 Forms: - Medication Reconciliation Form cp3 - Thank You Letter cp3 - Antibiotic Education cp3 - Prescription Opioid Use cp3 - Patient Portal Instructions cp3 Prescriptions: - Ibuprofen 600 mg Oral Tablet - take 1 tablet by ORAL route every 6 hours As needed take with food; 30 tablet; cp3 Refills: 0, Product Selection Permitted Signatures: Dispatcher [employer] Katlyn Wong MD MD cp3 Isabela Barrientos RN RN iw Karla, Thelma Marroquin, RN RN mb9 Selena Marks RN RN cm10
--- NOTE | 2023-01-07 19:55 | ER ---
Nurse's Notes [facility] Name: Radha Armando Age: 67 yrs Sex: Female : 1955 Arrival Date: 01/07/2023 Time: 18:07 Bed IW2 Private MD: Diagnosis: Fall on same level, unspecified;Crushing injury of other parts of head;Contusion of left foot Presentation: 01/07 18:21 Chief complaint: Patient states: i fell down some stairs at 5:15 pm today , feel down iw two steps, , my right big toe is throbbing, hit her forehead on the wall, denies LOC, she got dizzy after, my left arm is bruised and right hand is scraped , my neck is hurting also. 18:21 Acuity: JUDY 4 iw 18:22 Coronavirus screen: At this time, the client does not indicate any symptoms associated iw with coronavirus-19. Ebola Screen: Patient negative for fever greater than or equal to 101.5 degrees Fahrenheit, and additional compatible Ebola Virus Disease symptoms Patient denies exposure to infectious person. Patient denies travel to an Ebola-affected area in the 21 days before illness onset. No symptoms or risks identified at this time. Initial Sepsis Screen: Does the patient meet any 2 criteria? No. Patient's initial sepsis screen is negative. Does the patient have a suspected source of infection? No. Patient's initial sepsis screen is negative. Risk Assessment: Do you want to hurt yourself or someone else? Patient reports no desire to harm self or others. Onset of symptoms was January 07, 2023. 18:22 Method Of Arrival: Ambulatory iw Triage Assessment: 20:19 General: Appears in no apparent distress. comfortable, Behavior is calm, cooperative. cm10 Pain: Complains of pain in head. Neuro: No deficits noted. Level of Consciousness is awake, alert, obeys commands, Oriented to person, place, time, situation. Respiratory: No deficits noted. Airway is patent Respiratory effort is even, unlabored, Respiratory pattern is regular, symmetrical. Historical: - Allergies: 18:23 Codeine; iw - PMHx: 18:23 Hypertension; iw - Immunization history:: Adult Immunizations unknown. - Social history:: Smoking status: . Screenin:19 [facility] ED Fall Risk Assessment (Adult) History of falling in the last 3 months, cm10 including since admission No falls in past 3 months (0 pts) Confusion or Disorientation No (0 pts) Intoxicated or Sedated No (0 pts) Impaired Gait No (0 pts) Mobility Assist Device Used No (0 pt) Altered Elimination No (0 pt) Score/Fall Risk Level 0 - 2 = Low Risk Oriented to surroundings, Maintained a safe environment, Provided non-skid footwear. Abuse screen: Denies threats or abuse. Denies injuries from another. Nutritional screening: No deficits noted. Tuberculosis screening: No symptoms or risk factors identified. Vital Signs: 18:22 BP 175 / 91; Pulse 93; Resp 16; Temp 98.5; Pulse Ox 100% on R/A; Weight 80.74 kg; iw Height 5 ft. 2 in. ; Pain 10/10; 18:22 Body Mass Index 32.56 (80.74 kg, 157.48 cm) iw 18:22 Pain Scale: Adult iw ED Course: 18:10 Patient arrived in ED. im 18:11 Katlyn Soto MD is Attending Physician. cp3 18:22 Triage completed. iw 18:23 Arm band placed on. iw 18:42 CT Head C Spine In Process Unspecified. EDMS 18:49 Foot Right 3 View XRAY In Process Unspecified. EDMS 20:20 Patient has correct armband on for positive identification. Provided Education on: N/A. cm10 20:20 No provider procedures requiring assistance completed. Patient did not have IV access cm10 during this emergency room visit. Administered Medications: 18:40 Drug: Ondansetron PO 4 mg Route: PO; iw 20:18 Follow up: Response: No adverse reaction cm10 18:53 Not Given (Patient Refused): HYDROcodone-acetaminophen PO 5 mg-325 mg 2 tabs PO once mb9 20:18 Drug: Ibuprofen PO 800 mg Route: PO; cm10 20:18 Follow up: Response: No adverse reaction cm10 Medication: 20:19 VIS not applicable for this client. cm10 Outcome: 19:54 Discharge ordered by . cp3 20:20 Discharged to home ambulatory, with significant other. cm10 20:20 Condition: good 20:20 Discharge instructions given to patient, Instructed on discharge instructions, follow up and referral plans. medication usage, Demonstrated understanding of instructions, follow-up care, medications, Prescriptions given X 1. 20:21 Patient left the ED. cm10 Signatures: Dispatcher [employer] Katlyn Wong MD MD cp3 Isabela Barrientos RN RN Kev, Selena Marquez RN RN cm10 Thelma Acosta RN mb9 Corrections: (The following items were deleted from the chart) 18:24 18:21 Chief complaint: Patient states: i fell down some stairs at 5:15 pm today , feel iw down two steps, , my right big toe is throbbing, hit her forehead on the wall, denies LOC, she got dizzy after, my left arm is bruised and right hand is scraped iw 18:53 18:40 HYDROcodone-acetaminophen PO 5 mg-325 mg 2 tabs PO mb9
[2023-01-07] MEDS ORDERED: IBUPROFEN 400 MG TAB ONE (20:21)
[2023-01-07 20:46] VITALS: BP 175/91; TEMP 98.5; O2SAT 100
== END 2023-01-07 20:21 | disposition home or self-care (01) ==
LOC: ER 18:07
DX: S07.8XXA Crushing injury of other parts of head, initial encounter (principal); S90.32XA Contusion of left foot, initial encounter; W18.30XA Fall on same level, unspecified, initial encounter; I10 Essential (primary) hypertension; Z88.5 Allergy status to narcotic agent
CPT/HCPCS: 70450; 72125; 73630; Q0162 ×2